=== PATIENT | male | born 1965 | race Caucasian/White ===

== ENCOUNTER 2020-04-20 06:06 | Emergency (ER) | payer MEDICAID, OTHER | END 2020-04-20 06:21 | disposition left against medical advice (07) | LOC: ER 06:06 | DX: R10.9 Unspecified abdominal pain (principal); Z53.21 Procedure and treatment not carried out due to patient leaving prior to being seen by health care provider ==

== ENCOUNTER 2023-11-14 08:03 | Emergency (ER) | payer MEDICAID ==
[~2023-11-14] VITALS: Ht 182.9 cm; Wt 80.8 kg
[2023-11-14 09:35] LABS: Urine Bacteria None Seen /hpf (None Seen); Urine WBC None Seen /hpf (0 - 3)
[2023-11-14 09:49] LABS: Urine Blood Negative /uL (Negative); Urine Clarity Clear (Clear); Urine Color Yellow (Yellow); Urine Mucus FEW (None Seen); Urine Protein, UAD TRACE (Negative); Urine Specific Gravity 1.025 (1.001-1.035); Urine Urobilinogen Normal (Negative); Urine pH 5.5 (5.0-9.0)
[2023-11-14 09:56] LABS: Basophils # (auto) 0 10 ^3/uL (0-0.2); Basophils % (auto) 0.5 % (0.0-2.0); Eosinophils # (auto) 0.2 10 ^3/uL (0-0.8); Eosinophils % (auto) 2.1 % (0.0-7.0); Hematocrit 44.3 % (41.0-53.0); Hemoglobin 15.4 g/dL (13.5-17.5); Lymphocytes # (auto) 2.1 10 ^3/uL (0.4-5.4); Lymphocytes % (auto) 27.5 % (10.0-50.0); Mean Corpuscular Hemoglobin 32.3 pg (28.0-32.0); Mean Corpuscular Hgb Conc. 34.7 g/dL (32.0-36.0); Mean Corpuscular Volume 93.1 fL (80.0-100.0); Monocytes # (auto) 0.5 10 ^3/uL (0-1.3); Monocytes % (auto) 7.2 % (0.0-12.0); Neutrophils # (auto) 4.8 10 ^3/uL (1.6-8.6); Neutrophils % (auto) 62.7 % (37.0-80.0); Nucleated Red Blood Cells % 0.1 %; Red Blood Cells 4.75 10^6/uL (4.5-5.90); Red Cell Distribution Width 13.8 % (11.8-14.3); White Blood Cell 7.6 10^3/uL (4.4-10.8)
[2023-11-14 10:11] VITALS: BP 134/72; PULSE 54; RESP 18; TEMP 98.2; O2SAT 97
[2023-11-14] MEDS: KETOROLAC TROMETH 60MG/2ML VIAL IM ONE (10:25)
[2023-11-14 10:26] LABS: Alanine Aminotransferase 24 U/L (7-40); Albumin 4.4 g/dL (3.2-4.8); Alkaline Phosphatase 86 U/L (46-116); Anion Gap 4 (5-15); Aspartate Aminotransferase 20 U/L (13-40); BUN/Creatinine Ratio 13.6 (10.0-20.0); Bilirubin, Total 0.7 mg/dL (0.2-1.0); Blood Urea Nitrogen 11 mg/dL (9-23); Calcium 9.9 mg/dL (8.5-10.1); Carbon Dioxide 26 mmol/L (20-30); Chloride 107 mmol/L (98-107); Glucose 91 mg/dL (74-106); Sodium 137 mmol/L (136-145); Total Protein 7.1 g/dL (5.7-8.2)
[2023-11-14] MEDS ORDERED: TRAM-626 PO (10:38)
[2023-11-14 10:39] LABS: Lipase 36 U/L (12-53)
== END 2023-11-14 10:47 | disposition home or self-care (01) ==
LOC: ER 08:03
DX: K80.20 Calculus of gallbladder without cholecystitis without obstruction (principal); F17.210 Nicotine dependence, cigarettes, uncomplicated; F12.10 Cannabis abuse, uncomplicated
CPT/HCPCS: 36415; 76705; 80053; 81001; 83690; 85025; 96372; 99285; J1885

== ENCOUNTER 2024-02-23 11:38 | Inpatient (IN) | payer MEDICAID ==
[~2024-02-23] VITALS: Ht 180.3 cm; Wt 79.4 kg
[~2024-02-23 11:38] MED LIST: TRAM-626 PO
[2024-02-23 12:12] LABS: Basophils # (auto) 0.1 10 ^3/uL (0-0.2); Basophils % (auto) 0.8 % (0.0-2.0); Eosinophils # (auto) 0.3 10 ^3/uL (0-0.8); Eosinophils % (auto) 3.4 % (0.0-7.0); Hematocrit 46.9 % (41.0-53.0); Lymphocytes # (auto) 2.5 10 ^3/uL (0.4-5.4); Lymphocytes % (auto) 31.8 % (10.0-50.0); Mean Corpuscular Hemoglobin 32.6 pg (28.0-32.0); Mean Corpuscular Hgb Conc. 34.1 g/dL (32.0-36.0); Mean Corpuscular Volume 95.5 fL (80.0-100.0); Monocytes # (auto) 0.3 10 ^3/uL (0-1.3); Monocytes % (auto) 4.4 % (0.0-12.0); Neutrophils # (auto) 4.6 10 ^3/uL (1.6-8.6); Neutrophils % (auto) 59.6 % (37.0-80.0); Nucleated Red Blood Cells % 0.1 %; Platelet Count (auto) 206 10^3/uL (140-450); Red Blood Cells 4.92 10^6/uL (4.5-5.90); Red Cell Distribution Width 13.2 % (11.8-14.3); White Blood Cell 7.8 10^3/uL (4.4-10.8)
[2024-02-23 12:31] LABS: Alanine Aminotransferase 18 U/L (7-40); Albumin 4.4 g/dL (3.2-4.8); Alkaline Phosphatase 78 U/L (46-116); Anion Gap 5 (5-15); Aspartate Aminotransferase 15 U/L (13-40); BUN/Creatinine Ratio 11.1 (10.0-20.0); Bilirubin, Total 0.4 mg/dL (0.2-1.0); Blood Urea Nitrogen 11 mg/dL (9-23); Calcium 9.8 mg/dL (8.7-10.4); Carbon Dioxide 26 mmol/L (20-31); Chloride 105 mmol/L (98-107); Glucose 118 mg/dL (74-106); Potassium 4.4 mmol/L (3.5-5.1); Sodium 136 mmol/L (136-145)
[2024-02-23 12:32] LABS: Total Protein 7.1 g/dL (5.7-8.2)
[2024-02-23 12:35] LABS: INR 1.02 (0.9-1.15); Partial Thromboplastin Time 28.8 SEC (24.5-34.5); Prothrombin Time 10.8 sec (9.3-11.8)
[2024-02-23 15:25] VITALS: BP 174/80; PULSE 38; RESP 16
[2024-02-23 15:54] LABS: Magnesium 2.2 mg/dL (1.6-2.6)
[2024-02-23] MEDS ORDERED: MORPHINE SULFATE INJ 2 MG/ml SYRG IV PRN (16:30)
[2024-02-23] MEDS ORDERED: NITROGLYCERIN 0.4 MG SL TAB SL PRN (16:30)
[2024-02-23] MEDS ORDERED: TRAZ-227 PO (17:03)
[2024-02-23] MEDS ORDERED: hydrALAZINE HCL 20 MG/ML VL IV PRN (17:15)
[2024-02-23 18:00] VITALS: PULSE 44; RESP 16; O2SAT 95
[2024-02-23 20:00] VITALS: PULSE 51; RESP 16; O2SAT 96
[2024-02-23 20:46] VITALS: BP 135/72; PULSE 49; RESP 18; TEMP 97.4; O2SAT 97
[2024-02-23] MEDS ORDERED: TRAM50TA2 PO (20:52)
[2024-02-23] MEDS: ATORVASTATIN 20 MG TAB PO SCH (22:42)
[2024-02-23] MEDS: traMADol HCL 50 MG TAB PO SCH (22:43)
[2024-02-24] VITALS (13 sets, daily range): BP systolic 102–159; BP diastolic 60–79; PULSE 40–67; RESP 12–19; TEMP 97.4–98.1; O2SAT 95–99
[2024-02-24 02:19] LABS: Urine Bacteria None Seen /hpf (None Seen)
[2024-02-24 02:30] LABS: Urine Blood Negative /uL (Negative); Urine Clarity Clear (Clear); Urine Color Light-Yellow (Yellow); Urine Mucus FEW (None Seen); Urine Protein, UAD Negative (Negative); Urine Specific Gravity 1.019 (1.001-1.035); Urine Urobilinogen Normal (Negative); Urine WBC 1 /hpf (0 - 3)
[2024-02-24 02:43] LABS: Amphetamine Screen, Urine Neg (NEGATIVE); Benzodiazephine Screen, Urine Neg (NEGATIVE)
[2024-02-24 02:44] LABS: Barbiturate Scree,Urine Neg (NEGATIVE); Cannabinoid Screen, Urine Pos (NEGATIVE); Cocaine Screen, Urine Neg (NEGATIVE); Opiate Scree,Urine Neg (NEGATIVE); Phencyclidine Screen, Urine Neg (NEGATIVE)
[2024-02-24 07:00] LABS: Chloride 109 mmol/L (98-107); Potassium 4.2 mmol/L (3.5-5.1); Sodium 138 mmol/L (136-145)
[2024-02-24 07:01] LABS: Anion Gap 5 (5-15); Calcium 9.5 mg/dL (8.7-10.4); Carbon Dioxide 24 mmol/L (20-31)
[2024-02-24 07:06] LABS: BUN/Creatinine Ratio 14.1 (10.0-20.0); Blood Urea Nitrogen 14 mg/dL (9-23); Glucose 91 mg/dL (74-106)
[2024-02-24 07:11] LABS: Basophils # (auto) 0 10 ^3/uL (0-0.2); Basophils % (auto) 0.4 % (0.0-2.0); Eosinophils # (auto) 0.4 10 ^3/uL (0-0.8); Eosinophils % (auto) 4.3 % (0.0-7.0); Hematocrit 46.1 % (41.0-53.0); Hemoglobin 16.2 g/dL (13.5-17.5); Lymphocytes # (auto) 2.4 10 ^3/uL (0.4-5.4); Lymphocytes % (auto) 27.8 % (10.0-50.0); Mean Corpuscular Hemoglobin 32.8 pg (28.0-32.0); Mean Corpuscular Hgb Conc. 35.1 g/dL (32.0-36.0); Mean Corpuscular Volume 93.5 fL (80.0-100.0); Monocytes # (auto) 0.5 10 ^3/uL (0-1.3); Neutrophils # (auto) 5.3 10 ^3/uL (1.6-8.6); Neutrophils % (auto) 61.5 % (37.0-80.0); Nucleated Red Blood Cells % 0.1 %; Platelet Count (auto) 197 10^3/uL (140-450); Red Blood Cells 4.94 10^6/uL (4.5-5.90); Red Cell Distribution Width 13.3 % (11.8-14.3); White Blood Cell 8.6 10^3/uL (4.4-10.8)
[2024-02-24] MEDS: MIDAZOLAM HCL 2MG/2ML 2ml VIAL (1mg/ml) ONE (09:44)
[2024-02-24] MEDS: VERAPAMIL 2.5MG/ML INJ 2ML VIAL IV ONE (09:44)
[2024-02-24] MEDS: fentaNYL CITRATE 100 MCG/2 ML VL ONE (09:44)
[2024-02-24] MEDS: HEPARIN SODIUM (PORCINE) 5000 UNITS/ML 1ML VIAL ONE (09:45)
[2024-02-24] MEDS: LIDOCAINE 2%HCL (LOCAL ANESTH.) INJ 20ML MDV ONE (09:45)
[2024-02-24] MEDS: IOHEXOL 350 MG/ML 100ML IJ ONE (10:17)
[2024-02-24] MEDS: ATORVASTATIN 20 MG TAB PO ONE (13:01)
[2024-02-24] MEDS: ASPirin 81 mg TAB PO ONE (13:01)
[2024-02-24] MEDS: ISOSORBIDE MONONITRATE ER 60 MG TAB PO ONE (13:01)
[2024-02-24] MEDS: traZODone HCL 50 MG TAB PO PRN (20:18)
[2024-02-24] MEDS: ATORVASTATIN 20 MG TAB PO SCH (21:25)
[2024-02-25] VITALS (10 sets, daily range): BP systolic 106–163; BP diastolic 57–90; PULSE 44–78; RESP 18–24; TEMP 97.8–98.2; O2SAT 94–99
[2024-02-25 07:06] LABS: Anion Gap 7 (5-15); Carbon Dioxide 24 mmol/L (20-31); Chloride 106 mmol/L (98-107); Sodium 137 mmol/L (136-145)
[2024-02-25 07:07] LABS: Calcium 9.3 mg/dL (8.7-10.4)
[2024-02-25 07:12] LABS: BUN/Creatinine Ratio 15.7 (10.0-20.0); Blood Urea Nitrogen 16 mg/dL (9-23); Glucose 87 mg/dL (74-106)
[2024-02-25] MEDS: ASPirin 81 mg TAB PO SCH (10:00)
[2024-02-25] MEDS: ISOSORBIDE MONONITRATE ER 60 MG TAB PO SCH (10:22)
[2024-02-26] VITALS (9 sets, daily range): BP systolic 113–149; BP diastolic 62–88; PULSE 43–83; RESP 15–20; TEMP 98.3–98.7; O2SAT 92–99
[2024-02-26 06:32] LABS: Anion Gap 6 (5-15); Carbon Dioxide 25 mmol/L (20-31); Chloride 105 mmol/L (98-107); Potassium 4.3 mmol/L (3.5-5.1); Sodium 136 mmol/L (136-145)
[2024-02-26 06:33] LABS: Calcium 10.1 mg/dL (8.7-10.4)
[2024-02-26 06:38] LABS: BUN/Creatinine Ratio 15.8 (10.0-20.0); Blood Urea Nitrogen 16 mg/dL (9-23); Glucose 95 mg/dL (74-106)
[2024-02-27] VITALS (12 sets, daily range): BP systolic 108–153; BP diastolic 72–113; PULSE 60–108; RESP 12–18; TEMP 97.6–98.3; O2SAT 93–96
[2024-02-27 03:04] LABS: Basophils # (auto) 0.1 10 ^3/uL (0-0.2); Eosinophils # (auto) 0.3 10 ^3/uL (0-0.8); Eosinophils % (auto) 2.7 % (0.0-7.0); Hematocrit 46.7 % (41.0-53.0); Hemoglobin 16.6 g/dL (13.5-17.5); Lymphocytes # (auto) 2.5 10 ^3/uL (0.4-5.4); Lymphocytes % (auto) 25.4 % (10.0-50.0); Mean Corpuscular Hemoglobin 32.8 pg (28.0-32.0); Mean Corpuscular Hgb Conc. 35.6 g/dL (32.0-36.0); Monocytes # (auto) 0.6 10 ^3/uL (0-1.3); Monocytes % (auto) 6.3 % (0.0-12.0); Neutrophils # (auto) 6.4 10 ^3/uL (1.6-8.6); Neutrophils % (auto) 64.6 % (37.0-80.0); Nucleated Red Blood Cells % 0.1 %; Platelet Count (auto) 198 10^3/uL (140-450); Red Blood Cells 5.08 10^6/uL (4.5-5.90); White Blood Cell 9.9 10^3/uL (4.4-10.8)
[2024-02-27 03:13] LABS: Chloride 104 mmol/L (98-107); Potassium 3.6 mmol/L (3.5-5.1); Sodium 135 mmol/L (136-145)
[2024-02-27 03:14] LABS: Anion Gap 6 (5-15); Carbon Dioxide 25 mmol/L (20-31)
[2024-02-27 03:15] LABS: Calcium 10.1 mg/dL (8.7-10.4)
[2024-02-27 03:19] LABS: Blood Urea Nitrogen 16 mg/dL (9-23); Glucose 100 mg/dL (74-106)
[2024-02-27] MEDS: ONDANSETRON HCL 4 MG/2 ML VIAL IV PRN (06:10)
[2024-02-27] MEDS ORDERED: ASPI-325 PO (13:19)
[2024-02-27] MEDS ORDERED: ATOR20TA50 PO (13:19)
[2024-02-27] MEDS ORDERED: ISO60SRT PO (13:19)
[2024-02-27] MEDS ORDERED: MIDAZOLAM HCL 2MG/2ML 2ml VIAL (1mg/ml) ONE (14:14)
[2024-02-27] MEDS ORDERED: LIDOCAINE 2%HCL (LOCAL ANESTH.) INJ 20ML MDV ONE (14:14)
[2024-02-27] MEDS ORDERED: VANCOMYCIN HCL 1000 MG VL ONE ×3 (14:14→14:48)
[2024-02-27] MEDS ORDERED: fentaNYL CITRATE 100 MCG/2 ML VL ONE ×2 (14:14→15:41)
[2024-02-27] MEDS ORDERED: VANCOMYCIN 1GM/200ML PREMIX 250 ML IV ONE (14:15)
[2024-02-27] MEDS ORDERED: KETOROLAC TROMETH 30 MG/ML 1ML VIAL IV ONE (14:30)
[2024-02-27] MEDS: VANCOMYCIN 1GM/200ML PREMIX 250 ML IV SCH (23:00)
[2024-02-28] VITALS (8 sets, daily range): BP systolic 108–139; BP diastolic 66–95; PULSE 61–99; RESP 17–18; TEMP 97.9–98.4; O2SAT 94–97
[2024-02-28 05:55] LABS: Basophils # (auto) 0 10 ^3/uL (0-0.2); Basophils % (auto) 0.3 % (0.0-2.0); Eosinophils # (auto) 0.1 10 ^3/uL (0-0.8); Eosinophils % (auto) 1.4 % (0.0-7.0); Hematocrit 43.9 % (41.0-53.0); Hemoglobin 15.4 g/dL (13.5-17.5); Lymphocytes # (auto) 1.6 10 ^3/uL (0.4-5.4); Lymphocytes % (auto) 16.1 % (10.0-50.0); Mean Corpuscular Hemoglobin 32.4 pg (28.0-32.0); Mean Corpuscular Hgb Conc. 35.1 g/dL (32.0-36.0); Mean Corpuscular Volume 92.4 fL (80.0-100.0); Monocytes # (auto) 0.7 10 ^3/uL (0-1.3); Monocytes % (auto) 7.1 % (0.0-12.0); Neutrophils # (auto) 7.6 10 ^3/uL (1.6-8.6); Neutrophils % (auto) 75.1 % (37.0-80.0); Platelet Count (auto) 179 10^3/uL (140-450); Red Blood Cells 4.75 10^6/uL (4.5-5.90); White Blood Cell 10.1 10^3/uL (4.4-10.8)
[2024-02-28 06:15] LABS: Chloride 103 mmol/L (98-107); Potassium 3.6 mmol/L (3.5-5.1); Sodium 134 mmol/L (136-145)
[2024-02-28 06:16] LABS: Anion Gap 8 (5-15); Calcium 9.5 mg/dL (8.7-10.4); Carbon Dioxide 23 mmol/L (20-31)
[2024-02-28 06:21] LABS: BUN/Creatinine Ratio 15.1 (10.0-20.0); Blood Urea Nitrogen 13 mg/dL (9-23); Glucose 104 mg/dL (74-106)
[2024-02-28] MEDS: METOPROLOL SUCCINATE XL 50 MG TAB PO ONE (11:05)
[2024-02-28] MEDS: CLOPIDOGREL BISULFATE 75 MG TAB PO ONE (11:06)
[2024-02-28] MEDS: APIXABAN 5 MG TAB PO SCH (11:07)
[2024-02-28] MEDS: AMIODARONE HCL 200 MG TAB PO ONE (11:07)
[2024-02-28] MEDS: DOXYCYCLINE 100 MG TAB/CAP PO ONE (15:08)
[2024-02-28] MEDS ORDERED: CLOP75TA70 PO (15:09)
[2024-02-28] MEDS ORDERED: DOX100T PO (15:09)
[2024-02-28] MEDS ORDERED: METO-6 PO (15:09)
[2024-02-28] MEDS ORDERED: APIX5TAB PO (15:09)
[2024-02-28] MEDS ORDERED: AMIO200T13 PO (15:09)
[2024-02-28] MEDS ORDERED: NAPR-746 PO (15:23)
[2024-02-28] MEDS ORDERED: DOXYCYCLINE 100 MG TAB/CAP PO SCH (22:00)
[2024-02-28] MEDS ORDERED: AMIODARONE HCL 200 MG TAB PO SCH (22:00)
[2024-02-29] MEDS ORDERED: METOPROLOL SUCCINATE XL 50 MG TAB PO SCH (10:00)
[2024-02-29] MEDS ORDERED: CLOPIDOGREL BISULFATE 75 MG TAB PO SCH (10:00)
[2024-02-29] MEDS ORDERED: VANCOMYCIN 1GM/200ML PREMIX 250 ML IV SCH (10:00)
== END 2024-02-28 17:03 | disposition home or self-care (01) | DRG 171 ==
LOC: ER 11:40 → TELE 16:28 → TELE-E-ADS 20:44
PROVIDERS: ADMIT Internal Medicine; ATTEND Emergency Medicine
PROC: B211YZZ Fluoroscopy of Multiple Coronary Arteries using Other Contrast (ICD-10-PCS; 2024-02-24)
PROC: 4A023N7 Measurement of Cardiac Sampling and Pressure, Left Heart, Percutaneous Approach (ICD-10-PCS; 2024-02-24)
PROC: 0JH606Z Insertion of Pacemaker, Dual Chamber into Chest Subcutaneous Tissue and Fascia, Open Approach (ICD-10-PCS; principal; 2024-02-27)
PROC: 02H63JZ Insertion of Pacemaker Lead into Right Atrium, Percutaneous Approach (ICD-10-PCS; 2024-02-27)
PROC: 02HK3JZ Insertion of Pacemaker Lead into Right Ventricle, Percutaneous Approach (ICD-10-PCS; 2024-02-27)
PROC: B517YZZ Fluoroscopy of Left Subclavian Vein using Other Contrast (ICD-10-PCS; 2024-02-27)
PROC: B51NYZZ Fluoroscopy of Left Upper Extremity Veins using Other Contrast (ICD-10-PCS; 2024-02-27)
DX: I44.1 Atrioventricular block, second degree (principal); E11.9 Type 2 diabetes mellitus without complications; E78.00 Pure hypercholesterolemia, unspecified; G47.00 Insomnia, unspecified; M54.9 Dorsalgia, unspecified; G89.29 Other chronic pain; M54.50 Low back pain, unspecified; F12.10 Cannabis abuse, uncomplicated; I48.0 Paroxysmal atrial fibrillation; I10 Essential (primary) hypertension; E66.9 Obesity, unspecified; F17.210 Nicotine dependence, cigarettes, uncomplicated; I25.119 Atherosclerotic heart disease of native coronary artery with unspecified angina pectoris; I25.2 Old myocardial infarction; Z71.6 Tobacco abuse counseling; Z79.899 Other long term (current) drug therapy; Z80.1 Family history of malignant neoplasm of trachea, bronchus and lung; Z68.24 Body mass index [BMI] 24.0-24.9, adult; Z79.02 Long term (current) use of antithrombotics/antiplatelets; Z79.01 Long term (current) use of anticoagulants; Z82.49 Family history of ischemic heart disease and other diseases of the circulatory system
CPT/HCPCS: 33208; 36415; 70450; 70551; 71045; 80048; 80053; 80061; 80307; 81001; 83036; 83735; 84443; 84484; 85025; 85610; 85730; 86850; 86900; 86901; 93005; 93017; 93306; 93458; 93886; 99152; 99291; G0378; J2250; J2405

== ENCOUNTER 2024-03-09 06:35 | Inpatient (IN) | payer MEDICAID ==
[2024-03-09] VITALS (16 sets, daily range): BP systolic 119–165; BP diastolic 76–102; PULSE 90–127; RESP 14–31; TEMP 97.8–98.1; O2SAT 93–98
[~2024-03-09] VITALS: Ht 180.3 cm; Wt 84.2 kg
[~2024-03-09 06:35] MED LIST changes: +AMIO200T13 PO; +APIX5TAB PO; +ASPI-325 PO; +ATOR20TA50 PO; +CLOP75TA70 PO; +DOX100T PO; +ISO60SRT PO; +METO-6 PO; +NAPR-746 PO; -TRAM-626 PO; +TRAZ-227 PO
[2024-03-09] MEDS: SODIUM CHLORIDE 0.9% 1,000 ML IV ONE ×2 (07:59→14:45)
[2024-03-09] MEDS: ONDANSETRON HCL 4 MG/2 ML VIAL IV ONE (07:59)
[2024-03-09] MEDS: FAMOTIDINE (10MG/ML) 2ML VL IV ONE (07:59)
[2024-03-09 08:32] LABS: Chloride 107 mmol/L (98-107); Potassium 4.2 mmol/L (3.5-5.1); Sodium 138 mmol/L (136-145)
[2024-03-09 08:33] LABS: Anion Gap 8 (5-15); Basophils # (auto) 0 10 ^3/uL (0-0.2); Basophils % (auto) 0.2 % (0.0-2.0); Carbon Dioxide 23 mmol/L (20-31); Eosinophils # (auto) 0.2 10 ^3/uL (0-0.8); Eosinophils % (auto) 1.4 % (0.0-7.0); Lymphocytes # (auto) 1.9 10 ^3/uL (0.4-5.4); Lymphocytes % (auto) 13.2 % (10.0-50.0); Mean Corpuscular Hgb Conc. 34.3 g/dL (32.0-36.0); Mean Corpuscular Volume 93.4 fL (80.0-100.0); Monocytes # (auto) 0.9 10 ^3/uL (0-1.3); Monocytes % (auto) 6.4 % (0.0-12.0); Neutrophils # (auto) 11.1 10 ^3/uL (1.6-8.6); Neutrophils % (auto) 78.8 % (37.0-80.0); Platelet Count (auto) 290 10^3/uL (140-450); Red Blood Cells 4.39 10^6/uL (4.5-5.90); Red Cell Distribution Width 13.1 % (11.8-14.3); White Blood Cell 14.1 10^3/uL (4.4-10.8)
[2024-03-09 08:38] LABS: BUN/Creatinine Ratio 18.3 (10.0-20.0); Blood Urea Nitrogen 19 mg/dL (9-23); Glucose 139 mg/dL (74-106)
[2024-03-09] MEDS: MORPHINE SULFATE 4 MG/ML SYR/VIAL IV ONE (09:34)
[2024-03-09] MEDS ORDERED: NITROGLYCERIN 0.4 MG SL TAB SL PRN (09:45)
[2024-03-09] MEDS ORDERED: ACETAMINOPHEN 325 MG TAB PO PRN (09:45)
[2024-03-09] MEDS ORDERED: MORPHINE SULFATE INJ 2 MG/ml SYRG IV PRN (09:45)
[2024-03-09] MEDS: CLOPIDOGREL BISULFATE 75 MG TAB PO SCH (10:31)
[2024-03-09] MEDS: METOPROLOL SUCCINATE XL 50 MG TAB PO SCH (10:31)
[2024-03-09] MEDS: ISOSORBIDE MONONITRATE ER 60 MG TAB PO SCH (10:32)
[2024-03-09] MEDS: AMIODARONE HCL 200 MG TAB PO SCH (10:32)
[2024-03-09] MEDS: ASPirin-EC 81 mg tab PO SCH (10:33)
[2024-03-09] MEDS: APIXABAN 5 MG TAB PO SCH (10:33)
[2024-03-09 11:41] LABS: Phosphorus 4.5 mg/dL (2.4-5.1)
[2024-03-09 11:46] LABS: INR 1.06 (0.9-1.15); Partial Thromboplastin Time 30.2 SEC (24.5-34.5); Prothrombin Time 11.2 sec (9.3-11.8)
[2024-03-09] MEDS: ONDANSETRON HCL 4 MG/2 ML VIAL IV PRN (12:45)
[2024-03-09 14:08] LABS: Lactic Acid w/Reflex 3.4 mmol/L (0.4-2.0)
[2024-03-09] MEDS: SODIUM CHLOR 0.9% PF (SALINE LOCK) 10ML VIAL/SYR IV SCH (14:16)
[2024-03-09] MEDS: MIDAZOLAM HCL 2MG/2ML 2ml VIAL (1mg/ml) ONE (16:05)
[2024-03-09] MEDS: fentaNYL CITRATE 100 MCG/2 ML VL ONE ×2 (16:05→16:40)
[2024-03-09] MEDS: LIDOCAINE 2%HCL (LOCAL ANESTH.) INJ 20ML MDV ONE ×2 (16:06→16:39)
[2024-03-09] MEDS: HYDROmorphone HCL 2 MG/ML VL/or syr ONE (17:10)
[2024-03-09] MEDS: VANCOMYCIN 1GM/200ML PREMIX 200 ML IV ONE (17:48)
[2024-03-09 19:36] LABS: Urine Bacteria None Seen /hpf (None Seen)
[2024-03-09 19:50] LABS: Urine Blood Negative /uL (Negative); Urine Clarity Clear (Clear); Urine Color Yellow (Yellow); Urine Hyaline Cast MOD /lpf (0 - 2); Urine Mucus MODERATE (None Seen); Urine Protein, UAD 1+ (Negative); Urine Specific Gravity 1.038 (1.001-1.035); Urine Urobilinogen 2 mg/dL (Negative); Urine WBC 3 /hpf (0 - 3); Urine pH 5.5 (5.0-9.0)
[2024-03-09 20:00] LABS: Amphetamine Screen, Urine Neg (NEGATIVE)
[2024-03-09 20:01] LABS: Barbiturate Scree,Urine Neg (NEGATIVE); Benzodiazephine Screen, Urine Pos (NEGATIVE); Cannabinoid Screen, Urine Pos (NEGATIVE); Cocaine Screen, Urine Neg (NEGATIVE); Opiate Scree,Urine Pos (NEGATIVE); Phencyclidine Screen, Urine Neg (NEGATIVE)
[2024-03-09 20:22] LABS: Lactic Acid w/Reflex 2.3 mmol/L (0.4-2.0)
[2024-03-09 20:55] LABS: Body Fluid Polymorphonuclear 85 % (0-25); Body Fluid Red Blood Cells 3378603 CUMM (0-2000)
[2024-03-09 20:56] LABS: Body Fluid White Blood Cells 34354 CUMM (0-200)
[2024-03-09] MEDS: ATORVASTATIN 20 MG TAB PO SCH (20:58)
[2024-03-09] MEDS: HYDROmorphone HCL 2 MG/ML VL/or syr IV PRN (21:06)
[2024-03-10] VITALS (31 sets, daily range): BP systolic 71–144; BP diastolic 41–113; PULSE 92–131; RESP 12–27; TEMP 97.7–98.6; O2SAT 90–99
[2024-03-10] MEDS: SENNA 8.6 MG TAB PO ONE (02:10)
[2024-03-10 05:06] LABS: Basophils # (auto) 0 10 ^3/uL (0-0.2); Basophils % (auto) 0.1 % (0.0-2.0); Eosinophils # (auto) 0 10 ^3/uL (0-0.8); Hematocrit 38.3 % (41.0-53.0); Hemoglobin 13.2 g/dL (13.5-17.5); Lymphocytes # (auto) 1.9 10 ^3/uL (0.4-5.4); Lymphocytes % (auto) 10.8 % (10.0-50.0); Mean Corpuscular Hemoglobin 32.2 pg (28.0-32.0); Mean Corpuscular Hgb Conc. 34.4 g/dL (32.0-36.0); Mean Corpuscular Volume 93.6 fL (80.0-100.0); Monocytes # (auto) 1.9 10 ^3/uL (0-1.3); Monocytes % (auto) 10.7 % (0.0-12.0); Neutrophils # (auto) 14.1 10 ^3/uL (1.6-8.6); Neutrophils % (auto) 78.4 % (37.0-80.0); Platelet Count (auto) 323 10^3/uL (140-450); Red Blood Cells 4.09 10^6/uL (4.5-5.90); Red Cell Distribution Width 13.4 % (11.8-14.3)
[2024-03-10 05:22] LABS: Alanine Aminotransferase 27 U/L (7-40); Alkaline Phosphatase 77 U/L (46-116); Anion Gap 7 (5-15); BUN/Creatinine Ratio 19.4 (10.0-20.0); Blood Urea Nitrogen 20 mg/dL (9-23); Calcium 9.5 mg/dL (8.7-10.4); Carbon Dioxide 21 mmol/L (20-31); Chloride 106 mmol/L (98-107); Glucose 144 mg/dL (74-106); Potassium 4.3 mmol/L (3.5-5.1); Sodium 134 mmol/L (136-145)
[2024-03-10 05:23] LABS: Albumin 4.1 g/dL (3.2-4.8); Aspartate Aminotransferase 20 U/L (13-40)
[2024-03-10 05:24] LABS: Bilirubin, Total 0.8 mg/dL (0.2-1.0); Total Protein 6.7 g/dL (5.7-8.2)
[2024-03-10] MEDS ORDERED: VANCOMYCIN PER PHARMACY 0 MG IV SCH (07:45)
[2024-03-10] MEDS: VANCOMYCIN 1GM/200ML PREMIX 200 ML IV SCH ×2 (10:28→21:15)
[2024-03-10] MEDS: MEROPENEM 1GM IVPB 50 ML IV ONE (13:24)
[2024-03-10] MEDS: MEROPENEM 1GM IVPB 50 ML IV SCH (15:00)
[2024-03-10] MEDS: AMIODARONE 450mg/250ml AE 250 ML IV SCH (18:47)
[2024-03-10] MEDS: COLCHICINE 0.6 MG CAP PO ONE (19:11)
[2024-03-10] MEDS: IBUPROFEN 600 MG TAB PO ONE (21:18)
[2024-03-10] MEDS: COLCHICINE 0.6 MG CAP PO SCH (21:19)
[2024-03-10] MEDS: IBUPROFEN 600 MG TAB PO SCH (22:00)
[2024-03-10] MEDS: FAMOTIDINE 20 MG TAB PO SCH (22:11)
[2024-03-10 23:53] LABS: COVID19 ANTIGEN SOFIA FIA NEGATIVE (NEGATIVE)
[2024-03-11] VITALS (91 sets, daily range): BP systolic 83–161; BP diastolic 45–105; PULSE 60–102; RESP 9–27; TEMP 98.1–99; O2SAT 86–98
[2024-03-11 04:56] LABS: Basophils # (auto) 0.1 10 ^3/uL (0-0.2); Basophils % (auto) 0.6 % (0.0-2.0); Eosinophils # (auto) 0 10 ^3/uL (0-0.8); Eosinophils % (auto) 0.2 % (0.0-7.0); Hematocrit 34.3 % (41.0-53.0); Hemoglobin 11.6 g/dL (13.5-17.5); Lymphocytes # (auto) 3.5 10 ^3/uL (0.4-5.4); Lymphocytes % (auto) 20.6 % (10.0-50.0); Mean Corpuscular Hemoglobin 31.9 pg (28.0-32.0); Mean Corpuscular Hgb Conc. 33.8 g/dL (32.0-36.0); Mean Corpuscular Volume 94.3 fL (80.0-100.0); Monocytes # (auto) 1.8 10 ^3/uL (0-1.3); Monocytes % (auto) 10.5 % (0.0-12.0); Neutrophils # (auto) 11.6 10 ^3/uL (1.6-8.6); Neutrophils % (auto) 68.1 % (37.0-80.0); Nucleated Red Blood Cells % 0.1 %; Platelet Count (auto) 258 10^3/uL (140-450); Red Blood Cells 3.63 10^6/uL (4.5-5.90); Red Cell Distribution Width 13.5 % (11.8-14.3)
[2024-03-11 05:04] LABS: Alanine Aminotransferase 28 U/L (7-40); Albumin 3.7 g/dL (3.2-4.8); Alkaline Phosphatase 73 U/L (46-116); Anion Gap 7 (5-15); Aspartate Aminotransferase 23 U/L (13-40); BUN/Creatinine Ratio 18.9 (10.0-20.0); Bilirubin, Total 0.7 mg/dL (0.2-1.0); Blood Urea Nitrogen 17 mg/dL (9-23); Calcium 9.3 mg/dL (8.7-10.4); Carbon Dioxide 22 mmol/L (20-31); Chloride 105 mmol/L (98-107); Glucose 113 mg/dL (74-106); Potassium 3.8 mmol/L (3.5-5.1); Sodium 134 mmol/L (136-145); Total Protein 6.3 g/dL (5.7-8.2)
[2024-03-11] MEDS: IOHEXOL 350 MG/ML 100ML IJ ONE (08:13)
[2024-03-11] MEDS: HYDROcodone-ACET 5/325MG TAB PO PRN (10:53)
[2024-03-11 12:07] LABS: Albumin, Body Fluid 3.4 g/dL (Not Estab.); Creatinine Body Fluid 1.1 mg/dL (Not Estab.); Protein, Body Fluid 6.1 g/dL (.)
[2024-03-11 14:38] LABS: Erythrocyte Sedimentation Rate 57 mm/hr (0-20)
[2024-03-12] VITALS (91 sets, daily range): BP systolic 83–154; BP diastolic 46–94; PULSE 54–89; RESP 10–28; TEMP 97.9–98.9; O2SAT 85–98
[2024-03-12 05:01] LABS: Basophils # (auto) 0 10 ^3/uL (0-0.2); Basophils % (auto) 0.4 % (0.0-2.0); Eosinophils # (auto) 0.1 10 ^3/uL (0-0.8); Eosinophils % (auto) 1.3 % (0.0-7.0); Hematocrit 31.4 % (41.0-53.0); Hemoglobin 11.2 g/dL (13.5-17.5); Lymphocytes # (auto) 1.9 10 ^3/uL (0.4-5.4); Lymphocytes % (auto) 17.6 % (10.0-50.0); Mean Corpuscular Hemoglobin 32.9 pg (28.0-32.0); Mean Corpuscular Hgb Conc. 35.6 g/dL (32.0-36.0); Mean Corpuscular Volume 92.4 fL (80.0-100.0); Monocytes % (auto) 8.8 % (0.0-12.0); Neutrophils # (auto) 7.9 10 ^3/uL (1.6-8.6); Neutrophils % (auto) 71.9 % (37.0-80.0); Platelet Count (auto) 224 10^3/uL (140-450); Red Cell Distribution Width 12.8 % (11.8-14.3); White Blood Cell 10.9 10^3/uL (4.4-10.8)
[2024-03-12 05:15] LABS: INR 1.17 (0.9-1.15); Partial Thromboplastin Time 31.9 SEC (24.5-34.5); Prothrombin Time 12.3 sec (9.3-11.8)
[2024-03-12 05:20] LABS: Alanine Aminotransferase 31 U/L (7-40); Albumin 3.3 g/dL (3.2-4.8); Alkaline Phosphatase 68 U/L (46-116); Anion Gap 6 (5-15); Aspartate Aminotransferase 24 U/L (13-40); BUN/Creatinine Ratio 21.6 (10.0-20.0); Bilirubin, Total 0.6 mg/dL (0.2-1.0); Blood Urea Nitrogen 16 mg/dL (9-23); Calcium 8.5 mg/dL (8.7-10.4); Carbon Dioxide 24 mmol/L (20-31); Chloride 106 mmol/L (98-107); Glucose 83 mg/dL (74-106); Magnesium 2.2 mg/dL (1.6-2.6); Phosphorus 2.4 mg/dL (2.4-5.1); Sodium 136 mmol/L (136-145); Total Protein 5.5 g/dL (5.7-8.2)
[2024-03-12 05:27] LABS: CRP High Sensitivity 10.06 mg/dL (<1.0)
[2024-03-12] MEDS: POTASSIUM CHL 20MEQ/100ML 100 ML IV SCH (09:54)
[2024-03-12] MEDS: PANTOPRAZOLE 40 MG/10 ML VIAL INJ IV SCH (10:00)
[2024-03-12] MEDS: PANTOPRAZOLE 40 MG/10 ML VIAL INJ IV ONE (10:06)
[2024-03-12 17:06] LABS: Anti-Centromere B Antibody <0.2 AI (0.0-0.9); Anti-Jo-1 Antibody <0.2 AI (0.0-0.9); Anti-dsDNA Antibody 1 IU/mL (0-9); Antichromatin Antibody <0.2 AI (0.0-0.9); Antiscleroderma-70 Antibody <0.2 AI (0.0-0.9); RNP Antibody <0.2 AI (0.0-0.9); Sjogren's Anti-SS-A Antibody <0.2 AI (0.0-0.9); Sjogren's Anti-SS-B Antibody <0.2 AI (0.0-0.9); Smith Antibody <0.2 AI (0.0-0.9)
[2024-03-12] MEDS: traZODone HCL 50 MG TAB PO SCH (21:51)
[2024-03-13] VITALS (83 sets, daily range): BP systolic 75–152; BP diastolic 28–103; PULSE 60–92; RESP 10–27; TEMP 97.8–98.7; O2SAT 87–98
[2024-03-13 06:11] LABS: Basophils # (auto) 0.1 10 ^3/uL (0-0.2); Basophils % (auto) 0.9 % (0.0-2.0); Eosinophils # (auto) 0.3 10 ^3/uL (0-0.8); Eosinophils % (auto) 2.6 % (0.0-7.0); Hematocrit 34.7 % (41.0-53.0); Hemoglobin 12.5 g/dL (13.5-17.5); Lymphocytes # (auto) 2.3 10 ^3/uL (0.4-5.4); Lymphocytes % (auto) 23.7 % (10.0-50.0); Mean Corpuscular Hemoglobin 33.3 pg (28.0-32.0); Mean Corpuscular Hgb Conc. 35.9 g/dL (32.0-36.0); Mean Corpuscular Volume 92.6 fL (80.0-100.0); Monocytes # (auto) 0.8 10 ^3/uL (0-1.3); Monocytes % (auto) 8.7 % (0.0-12.0); Neutrophils # (auto) 6.2 10 ^3/uL (1.6-8.6); Neutrophils % (auto) 64.1 % (37.0-80.0); Nucleated Red Blood Cells % 0.1 %; Platelet Count (auto) 286 10^3/uL (140-450); Red Blood Cells 3.75 10^6/uL (4.5-5.90); Red Cell Distribution Width 12.9 % (11.8-14.3); White Blood Cell 9.7 10^3/uL (4.4-10.8)
[2024-03-13 06:25] LABS: Alanine Aminotransferase 35 U/L (7-40); Albumin 3.5 g/dL (3.2-4.8); Alkaline Phosphatase 69 U/L (46-116); Anion Gap 6 (5-15); Aspartate Aminotransferase 25 U/L (13-40); BUN/Creatinine Ratio 13.6 (10.0-20.0); Bilirubin, Total 0.6 mg/dL (0.2-1.0); Blood Urea Nitrogen 11 mg/dL (9-23); Calcium 8.8 mg/dL (8.7-10.4); Carbon Dioxide 24 mmol/L (20-31); Chloride 111 mmol/L (98-107); Glucose 85 mg/dL (74-106); Magnesium 2.2 mg/dL (1.6-2.6); Phosphorus 2.3 mg/dL (2.4-5.1); Potassium 3.7 mmol/L (3.5-5.1); Sodium 141 mmol/L (136-145)
[2024-03-13 06:26] LABS: Total Protein 5.7 g/dL (5.7-8.2)
[2024-03-13] MEDS: clonazePAM 0.5 MG TAB PO PRN (11:56)
[2024-03-13] MEDS: AMIODARONE HCL 200 MG TAB PO ONE (13:09)
[2024-03-13] MEDS: AMIODARONE HCL 200 MG TAB PO SCH (20:45)
[2024-03-14] VITALS (22 sets, daily range): BP systolic 72–164; BP diastolic 32–85; PULSE 59–96; RESP 14–27; TEMP 97.7–98.9; O2SAT 81–96
[2024-03-14 09:16] LABS: Basophils # (auto) 0 10 ^3/uL (0-0.2); Basophils % (auto) 0.5 % (0.0-2.0); Eosinophils # (auto) 0.3 10 ^3/uL (0-0.8); Eosinophils % (auto) 3.1 % (0.0-7.0); Hematocrit 37.6 % (41.0-53.0); Hemoglobin 12.8 g/dL (13.5-17.5); Mean Corpuscular Hemoglobin 31.5 pg (28.0-32.0); Mean Corpuscular Volume 92.8 fL (80.0-100.0); Monocytes # (auto) 0.6 10 ^3/uL (0-1.3); Monocytes % (auto) 6.2 % (0.0-12.0); Neutrophils # (auto) 6.5 10 ^3/uL (1.6-8.6); Neutrophils % (auto) 69.2 % (37.0-80.0); Platelet Count (auto) 322 10^3/uL (140-450); Red Blood Cells 4.05 10^6/uL (4.5-5.90); Red Cell Distribution Width 13.2 % (11.8-14.3); White Blood Cell 9.4 10^3/uL (4.4-10.8)
[2024-03-14 09:24] LABS: Alanine Aminotransferase 29 U/L (7-40); Albumin 3.4 g/dL (3.2-4.8); Alkaline Phosphatase 75 U/L (46-116); Anion Gap 7 (5-15); Aspartate Aminotransferase 20 U/L (13-40); BUN/Creatinine Ratio 13.3 (10.0-20.0); Bilirubin, Total 0.5 mg/dL (0.2-1.0); Blood Urea Nitrogen 10 mg/dL (9-23); Calcium 8.7 mg/dL (8.7-10.4); Carbon Dioxide 23 mmol/L (20-31); Chloride 110 mmol/L (98-107); Glucose 97 mg/dL (74-106); Potassium 3.2 mmol/L (3.5-5.1); Sodium 140 mmol/L (136-145); Total Protein 5.8 g/dL (5.7-8.2)
[2024-03-14 09:32] LABS: CRP High Sensitivity 2.53 mg/dL (<1.0)
[2024-03-14] MEDS ORDERED: HYDROmorphone HCL 2 MG/ML VL/or syr IV PRN (09:45)
[2024-03-14] MEDS: POTASSIUM EFFERVESENT TAB 25 MEQ PO ONE (10:07)
[2024-03-14] MEDS: HYDROmorphone HCL 2 MG/ML VL/or syr IV PRN (10:10)
[2024-03-15] VITALS (24 sets, daily range): BP systolic 93–145; BP diastolic 37–85; PULSE 72–109; RESP 13–25; TEMP 98.1–98.4; O2SAT 92–98
[2024-03-15 05:21] LABS: Chloride 110 mmol/L (98-107); Potassium 3.5 mmol/L (3.5-5.1); Sodium 141 mmol/L (136-145)
[2024-03-15 05:22] LABS: Anion Gap 6 (5-15); Basophils # (auto) 0.1 10 ^3/uL (0-0.2); Basophils % (auto) 0.7 % (0.0-2.0); Calcium 8.5 mg/dL (8.7-10.4); Carbon Dioxide 25 mmol/L (20-31); Eosinophils # (auto) 0.3 10 ^3/uL (0-0.8); Eosinophils % (auto) 3.2 % (0.0-7.0); Hematocrit 36.3 % (41.0-53.0); Hemoglobin 12.6 g/dL (13.5-17.5); Lymphocytes # (auto) 2.7 10 ^3/uL (0.4-5.4); Lymphocytes % (auto) 25.6 % (10.0-50.0); Mean Corpuscular Hemoglobin 32.1 pg (28.0-32.0); Mean Corpuscular Hgb Conc. 34.8 g/dL (32.0-36.0); Mean Corpuscular Volume 92.2 fL (80.0-100.0); Monocytes # (auto) 0.9 10 ^3/uL (0-1.3); Monocytes % (auto) 8.3 % (0.0-12.0); Neutrophils # (auto) 6.5 10 ^3/uL (1.6-8.6); Neutrophils % (auto) 62.2 % (37.0-80.0); Platelet Count (auto) 322 10^3/uL (140-450); Red Blood Cells 3.94 10^6/uL (4.5-5.90); Red Cell Distribution Width 13.2 % (11.8-14.3); White Blood Cell 10.5 10^3/uL (4.4-10.8)
[2024-03-15 05:27] LABS: BUN/Creatinine Ratio 10.5 (10.0-20.0); Blood Urea Nitrogen 9 mg/dL (9-23); Glucose 101 mg/dL (74-106)
[2024-03-15 05:31] LABS: INR 1.08 (0.9-1.15); Partial Thromboplastin Time 27.3 SEC (24.5-34.5); Prothrombin Time 11.4 sec (9.3-11.8)
[2024-03-15] MEDS: POTASSIUM EFFERVESENT TAB 25 MEQ PO ONE (09:44)
[2024-03-15] MEDS: DOXYCYCLINE 100 MG TAB/CAP PO ONE (10:45)
[2024-03-15] MEDS: ASPirin 81 mg TAB PO ONE (11:45)
[2024-03-15] MEDS: PIPERACILLIN-TAZOB 3.375GM 100 ML IV SCH (12:45)
[2024-03-15] MEDS: ALPRAZolam 0.25 MG TAB PO ONE (14:33)
[2024-03-15] MEDS: ALPRAZolam 0.25 MG TAB PO SCH (22:23)
[2024-03-15] MEDS: DOXYCYCLINE 100 MG TAB/CAP PO SCH (22:23)
[2024-03-16] VITALS (26 sets, daily range): BP systolic 89–155; BP diastolic 45–69; PULSE 61–83; RESP 12–28; TEMP 97.7–98.5; O2SAT 83–98
[2024-03-16 05:10] LABS: Basophils # (auto) 0.1 10 ^3/uL (0-0.2); Basophils % (auto) 0.7 % (0.0-2.0); Eosinophils # (auto) 0.3 10 ^3/uL (0-0.8); Eosinophils % (auto) 2.8 % (0.0-7.0); Hematocrit 33.1 % (41.0-53.0); Hemoglobin 11.5 g/dL (13.5-17.5); Lymphocytes # (auto) 3.2 10 ^3/uL (0.4-5.4); Lymphocytes % (auto) 31.3 % (10.0-50.0); Mean Corpuscular Hemoglobin 32.1 pg (28.0-32.0); Mean Corpuscular Hgb Conc. 34.7 g/dL (32.0-36.0); Mean Corpuscular Volume 92.4 fL (80.0-100.0); Monocytes # (auto) 0.8 10 ^3/uL (0-1.3); Monocytes % (auto) 8.2 % (0.0-12.0); Neutrophils # (auto) 5.7 10 ^3/uL (1.6-8.6); Nucleated Red Blood Cells % 0.1 %; Platelet Count (auto) 288 10^3/uL (140-450); Red Blood Cells 3.59 10^6/uL (4.5-5.90); White Blood Cell 10.1 10^3/uL (4.4-10.8)
[2024-03-16 05:24] LABS: Alanine Aminotransferase 34 U/L (7-40); Albumin 3.1 g/dL (3.2-4.8); Alkaline Phosphatase 84 U/L (46-116); Anion Gap 6 (5-15); Aspartate Aminotransferase 25 U/L (13-40); BUN/Creatinine Ratio 9.1 (10.0-20.0); Blood Urea Nitrogen 8 mg/dL (9-23); Calcium 8.7 mg/dL (8.7-10.4); Carbon Dioxide 26 mmol/L (20-31); Chloride 109 mmol/L (98-107); Glucose 85 mg/dL (74-106); Potassium 3.6 mmol/L (3.5-5.1); Sodium 141 mmol/L (136-145)
[2024-03-16 05:25] LABS: Bilirubin, Total 0.6 mg/dL (0.2-1.0); Total Protein 5.2 g/dL (5.7-8.2)
[2024-03-16] MEDS: POTASSIUM EFFERVESENT TAB 25 MEQ PO ONE (09:13)
[2024-03-16] MEDS: PANTOPRAZOLE 40 MG TAB PO ONE (09:14)
[2024-03-16] MEDS: ASPirin 81 mg TAB PO SCH (10:32)
[2024-03-16] MEDS: ALPRAZolam 0.25 MG TAB PO SCH (10:37)
[2024-03-16] MEDS: PIPERACILLIN-TAZOB 3.375GM 100 ML IV SCH (13:26)
[2024-03-16] MEDS ORDERED: PANTOPRAZOLE 40 MG TAB PO SCH (17:00)
[2024-03-16] MEDS: PANTOPRAZOLE 40 MG TAB PO SCH (22:12)
[2024-03-17] VITALS (21 sets, daily range): BP systolic 101–155; BP diastolic 42–72; PULSE 59–77; RESP 13–24; TEMP 97.9–98.6; O2SAT 90–97
[2024-03-17 04:57] LABS: Basophils # (auto) 0.1 10 ^3/uL (0-0.2); Basophils % (auto) 1.1 % (0.0-2.0); Eosinophils # (auto) 0.3 10 ^3/uL (0-0.8); Eosinophils % (auto) 4.1 % (0.0-7.0); Hematocrit 36.2 % (41.0-53.0); Hemoglobin 12.2 g/dL (13.5-17.5); Lymphocytes # (auto) 2.1 10 ^3/uL (0.4-5.4); Lymphocytes % (auto) 25.8 % (10.0-50.0); Mean Corpuscular Hemoglobin 31.6 pg (28.0-32.0); Mean Corpuscular Hgb Conc. 33.7 g/dL (32.0-36.0); Mean Corpuscular Volume 93.9 fL (80.0-100.0); Monocytes # (auto) 0.6 10 ^3/uL (0-1.3); Monocytes % (auto) 7.5 % (0.0-12.0); Neutrophils # (auto) 5.1 10 ^3/uL (1.6-8.6); Neutrophils % (auto) 61.5 % (37.0-80.0); Platelet Count (auto) 307 10^3/uL (140-450); Red Blood Cells 3.85 10^6/uL (4.5-5.90); Red Cell Distribution Width 13.3 % (11.8-14.3); White Blood Cell 8.3 10^3/uL (4.4-10.8)
[2024-03-17 05:16] LABS: INR 1.09 (0.9-1.15); Partial Thromboplastin Time 28.5 SEC (24.5-34.5); Prothrombin Time 11.5 sec (9.3-11.8)
[2024-03-17 05:28] LABS: Anion Gap 7 (5-15); Carbon Dioxide 27 mmol/L (20-31); Chloride 106 mmol/L (98-107); Potassium 4.1 mmol/L (3.5-5.1); Sodium 140 mmol/L (136-145)
[2024-03-17 05:34] LABS: Glucose 83 mg/dL (74-106)
[2024-03-17 05:35] LABS: BUN/Creatinine Ratio 9.3 (10.0-20.0); Blood Urea Nitrogen 9 mg/dL (9-23); Magnesium 2.1 mg/dL (1.6-2.6)
[2024-03-17 05:37] LABS: Phosphorus 3.8 mg/dL (2.4-5.1)
[2024-03-17 07:51] LABS: CRP High Sensitivity 2.09 mg/dL (<1.0)
[2024-03-17] MEDS: HYDROcodone-ACET 10/325MG TAB PO PRN (12:01)
[2024-03-17] MEDS: HYDROmorphone HCL 2 MG/ML VL/or syr IV PRN (15:33)
[2024-03-17] MEDS ORDERED: COLC1CAP PO (16:01)
[2024-03-17] MEDS ORDERED: FAMO-12 PO (16:01)
[2024-03-17] MEDS ORDERED: NITR0.4S29 SL (16:01)
[2024-03-17] MEDS ORDERED: IBU600T PO (16:01)
[2024-03-17] MEDS ORDERED: HYDR-4072 PO (16:47)
[2024-03-17] MEDS ORDERED: CYCL-839 PO (16:47)
== END 2024-03-17 18:43 | disposition home or self-care (01) | DRG 207 ==
LOC: EDBD 06:35 → ER 06:35 → TELE 09:38 → DOU IN ICU 17:44
PROVIDERS: ADMIT Internal Medicine; ATTEND Student in an Organized Health Care Education/Training Program
PROC: 0W9D30Z Drainage of Pericardial Cavity with Drainage Device, Percutaneous Approach (ICD-10-PCS; principal; 2024-03-09)
DX: I31.39 Other pericardial effusion (noninflammatory) (principal); I31.4 Cardiac tamponade; D68.59 Other primary thrombophilia; R65.10 Systemic inflammatory response syndrome (SIRS) of non-infectious origin without acute organ dysfunction; I44.1 Atrioventricular block, second degree; I82.611 Acute embolism and thrombosis of superficial veins of right upper extremity; I48.0 Paroxysmal atrial fibrillation; I25.10 Atherosclerotic heart disease of native coronary artery without angina pectoris; F12.10 Cannabis abuse, uncomplicated; Z20.822 Contact with and (suspected) exposure to COVID-19; K59.00 Constipation, unspecified; G89.29 Other chronic pain; I25.2 Old myocardial infarction; Z95.0 Presence of cardiac pacemaker; Z79.01 Long term (current) use of anticoagulants; Z87.891 Personal history of nicotine dependence
CPT/HCPCS: 33016; 36415; 71045; 71250; 71260; 72128; 80048; 80053; 80061; 80202; 80307; 81001; 82306; 82570; 82607; 83516; 83605; 83615; 83735; 83880; 83986; 84100; 84443; 84484; 84560; 85025; 85610; 85652; 85730; 86141; 86225; 86235; 87040; 87081; 87205; 87426; 89051; 93005; 93306; 93971; 96361; 96374; 96375; 96376; 97163; 99152; 99291; G0378; J2185; J2250; J2405; J2470; J2543; J3480; J3490

== ENCOUNTER → 2024-07-12 | Outpatient (CLI) | payer MEDICAID ==
[~2024-07-12] MED LIST changes: -APIX5TAB PO; -CLOP75TA70 PO; +COLC1CAP PO; +CYCL-839 PO; +FAMO-12 PO; +HYDR-4072 PO; +IBU600T PO; -NAPR-746 PO; +NITR0.4S29 SL
[2024-07-12 13:39] LABS: Prostate Specific Antigen 0.4 ng/mL (0.0-4.0)
[2024-07-12 13:43] LABS: Albumin 4.5 g/dL (3.2-4.8); Alkaline Phosphatase 85 U/L (46-116); Anion Gap 8 (5-15); BUN/Creatinine Ratio 9.3 (10.0-20.0); Blood Urea Nitrogen 10 mg/dL (9-23); Calcium 9.7 mg/dL (8.7-10.4); Carbon Dioxide 24 mmol/L (20-31); Chloride 105 mmol/L (98-107); Glucose 106 mg/dL (74-106); Potassium 3.6 mmol/L (3.5-5.1); Sodium 137 mmol/L (136-145)
[2024-07-12 13:44] LABS: Alanine Aminotransferase 48 U/L (7-40); Aspartate Aminotransferase 40 U/L (13-40); Bilirubin, Total 0.5 mg/dL (0.2-1.0); Free T4 (Free Thyroxine) 1.52 ng/dL (0.89-1.76); Total Protein 6.9 g/dL (5.7-8.2)
== END | disposition home or self-care (01) ==
LOC: LAB 12:47
PROVIDERS: ATTEND Internal Medicine
DX: E03.9 Hypothyroidism, unspecified (principal)
CPT/HCPCS: 36415; 80053; 84153; 84439; 84443

== ENCOUNTER 2024-07-14 21:28 | Inpatient (IN) | payer MEDICAID ==
[~2024-07-14] VITALS: Ht 180.3 cm; Wt 72.0 kg
--- NOTE | 2024-07-14 22:15 | ED.PDOC ---
HPI (NEURO) HPI Comments HPI: Ashish Historian. 59y M who presents to the ED via EMS for chief complaint of weakness. Pt had the following ED course: - EMS states pt has been having generalized weakness for the past 30 minutes prior to ED arrival. pt family called EMS after pt had multiple falls at home, with no noted head injury or any associated loss of consciosuness - EMS arrived on scene and checked vitals with noted accu check of 73 and pt was given oral glucose and brought to the ED - pt states in the ED he has been fasting since 1 days prior - pt family was called and on phone states pt took 3 ASA today prior to ED arrival as pt has history of AFIB and has not taken his eliquis in 2 weeks due do side efffect from medication - pt in the ED, is alert and oriented x 4 and able to answer all questions. Past medical history: hypothyroidism, AFIB, pericarditis, blood around the heart, Av block second-degree, marijuana abuse, cardiac tamponade, Barry syndrome, SD, chronic pain, pericardial effusion, primary thrombophilia, proximal atrial fibrillation, Past surgical history: pacemaker Social history: endorses tobacco use, denies ETOH use, endorses drug use(marijuana) Medications: denies Allergies: nkda Denies any head or neck injury. Denies any loss of consciousness. REVIEW OF SYSTEMS: CONSTITUTIONAL: Denies acute: fever, diaphoresis, chills, HEAD: Denies acute: headache, photophobia Eyes: Denies acute: Double vision, vision loss, eye pain, eye discharge. EARS: Denies acute: tinnitus, hearing loss, ear discharge, ear pain, THROAT: Denies acute: sore throat, swelling, difficulty swallowing , pain with swallowing, change in voice. NECK: Denies acute: neck pain, neck swelling, stiff neck. HEART: Denies acute : chest pain, palpitations, LUNGS: Denies acute: SOB, wheezing, cough, hemoptysis ABDOMEN: Denies acute: abdominal pain, Nausea, Vomiting, diarrhea, melena , hematemesis, hematochezia SKIN: Denies acute: rash, redness, lesions, itchiness. EXTREMITIES: Denies acute: calf pain, numbness, tingling, weakness, denies pain in extremity. Denies acute: Low back pain. Neuro: Denies acute: focal neurological deficit, motor or sensory focal neurological deficit, tremors, seizure like activity, confusion, dizziness, change in mental status, loss of bowel or bladder function, cauda equina like symptoms. : Denies acute: dysuria, hematuria, flank pain, increase in urinary frequency. PSYCH: Denies acute: hallucination, suicidal ideation, homicidal ideation. PHYSICAL EXAM: General: no acute distress, awake and alert. Head: normocephalic, atraumatic. Neck: supple, trachea is midline, no swelling. Throat: Normal phonation. Eyes:, no erythema, no purulent discharge, no proptosis, no icterus. Heart: regular rate, regular rhythm, no significant murmur appreciated. Lungs: no apparent respiratory distress, Able to speak in full sentences. No wheezing, no rhonchi, no crackles. No stridors Clear to auscultation bilaterally. Abdomen: non tender to palpation, non distended, soft, no guarding, no rebound, + bowel sounds. Neuro: Awake, Alert, oriented to name, self, situation, follows commands GCS=15. Speech is normal. Skin: no petechia, no purpura, no cyanosis, non-pale, not jaundice. Lower extremities: --no - Pitting edema no deformity, no focal swelling, no calf TTP. Makes eye contact. moves all four extremities. Face: no apparent facial droop. PERRLA, EOM-I CN 2-12 are grossly intact, No nystagmus. No nuchal rigidity, Kernig's sign, Brudzinski's sign, no meningeal signs. ED COURSE: Chief Complaint: General Weakness Time Seen by MD: 22:13 Primary Care Provider: UNKNOWN Reviewed Notes: Nurses Notes, Hop Farmer Notes Information Source: Patient, Emergency Med Personnel Mode of Arrival: EMS Brought in by: EMS Past Medical History PAST MEDICAL HISTORY: AFIB Surgical History: Pacemaker Family History Family History: Reviewed,noncontributory to illness, Unknown Social History Smoker: Quit Greater Than 1 Year, Cigarettes Alcohol: Sober Drugs: Marijuana Lives In: Home Was a procedure done? Was a procedure done?: No Differential Diagnosis (SZ) Seizure: N/A General Weakness: Other (Includes but not limited to thyroid disease, encephalopathy, electrolyte abnormality, sepsis, infection, intracranial pathology, drug adverse effects, arrhythmia, kidney insufficiency, ACS, CVA, malignancy, anemia) X-Ray, Labs, Meds, VS Vital Signs Date Time Temp Pulse Resp B/P (MAP) Pulse Ox O2 Delivery O2 Flow Rate FiO2 07/14/24 21:48 62 07/14/24 21:28 97.8 64 16 134/86 (102) 98 Lab Test 07/15/24 00:35 07/14/24 22:49 07/14/24 21:45 Range/Units Troponin I High Sensitivity 3 L 3 L 3 L </=54 ng/L White Blood Count 7.4 4.4-10.8 10^3/uL Red Blood Count 4.59 4.5-5.90 10^6/uL Hemoglobin 14.3 13.5-17.5 g/dL Hematocrit 42.6 41.0-53.0 % Mean Corpuscular Volume 92.8 80.0-100.0 fL Mean Corpuscular Hemoglobin 31.1 28.0-32.0 pg Mean Corpuscular Hemoglobin Concent 33.5 32.0-36.0 g/dL Red Cell Distribution Width 16.0 H 11.8-14.3 % Platelet Count 186 140-450 10^3/uL Mean Platelet Volume 9.6 6.9-10.8 fL Neutrophils (%) (Auto) 54.8 37.0-80.0 % Lymphocytes (%) (Auto) 36.8 10.0-50.0 % Monocytes (%) (Auto) 5.8 0.0-12.0 % Eosinophils (%) (Auto) 1.8 0.0-7.0 % Basophils (%) (Auto) 0.8 0.0-2.0 % Neutrophils # (Auto) 4.0 1.6-8.6 10 ^3/uL Lymphocytes # (Auto) 2.7 0.4-5.4 10 ^3/uL Monocytes # (Auto) 0.4 0-1.3 10 ^3/uL Eosinophils # (Auto) 0.1 0-0.8 10 ^3/uL Basophils # (Auto) 0.1 0-0.2 10 ^3/uL Nucleated Red Blood Cells 0.1 % Prothrombin Time 11.0 9.3-11.8 sec Prothrombin Time INR 1.04 0.9-1.15 Activated Partial Thromboplast Time 27.2 24.5-34.5 SEC D-Dimer, Quantitative 0.79 H 0.0-0.49 mg/L FEU Sodium Level 138 136-145 mmol/L Potassium Level 4.2 3.5-5.1 mmol/L Chloride Level 106 98-107 mmol/L Carbon Dioxide Level 28 20-31 mmol/L Anion Gap 4 L 5-15 Blood Urea Nitrogen 10 9-23 mg/dL Creatinine 0.97 0.700-1.30 mg/dL Glomerular Filtration Rate Calc 89 >90 mL/min BUN/Creatinine Ratio 10.3 10.0-20.0 Serum Glucose 101 74-106 mg/dL Lactic Acid Level 0.6 0.4-2.0 mmol/L Calcium Level 9.7 8.7-10.4 mg/dL Magnesium Level 2.2 1.6-2.6 mg/dL Total Bilirubin 0.6 0.2-1.0 mg/dL Aspartate Amino Transferase (AST) 26 13-40 U/L Alanine Aminotransferase (ALT) 33 7-40 U/L Alkaline Phosphatase 75 46-116 U/L Total Protein 6.5 5.7-8.2 g/dL Albumin 4.3 3.2-4.8 g/dL Time of 1ST Reevaluation: 02:42 Reevaluation 1ST: Improved Patient Education/Counseling: Diagnosis, Treatment Family Education/Counseling: No Family Present Comments Patient presented with the above HPI.---generalized weakness---workup was initiated. patient was found with the above mentioned diagnosis. the following medications were ordered: please refer to order lists of meds and tests obtained by myself Dr. Browning. Patient ED course and VS have been stabilized. Patient has been reassessed in the ED and remained in a stable condition. Pertinent incidental findings were discussed with the patient and/or family. Patient/family voices understanding and is agreeable with plan. Patient has been observed in the ED adequate length of time to insure improvement/stability. Escalation of care considered: Consideration of escalation to observation or admission Patient was ADMITTED to the medicine team for further evaluation and treatment of their presentation. All the reports of any imaging studies that were ordered by myself were reviewed by myself. Departure 1 Departure Time of Disposition: 23:39 Impression: Primary Impression: Generalized weakness Disposition: 09 ADMITTED INPATIENT Admit to: Tele Condition: Guarded Discharged With: Self Critical Care Note Critical Care Time?: No I personally scribed for MARK BROWNING DO ([email or web address]) on 07/14/24 at 22:15. Electronically submitted by Eros Garcia ([facility]). MARK BROWNING DO Jul 14, 2024 22:15
[2024-07-14 22:21] LABS: Basophils # (auto) 0.1 10 ^3/uL (0-0.2); Basophils % (auto) 0.8 % (0.0-2.0); Eosinophils # (auto) 0.1 10 ^3/uL (0-0.8); Eosinophils % (auto) 1.8 % (0.0-7.0); Hematocrit 42.6 % (41.0-53.0); Hemoglobin 14.3 g/dL (13.5-17.5); Lymphocytes # (auto) 2.7 10 ^3/uL (0.4-5.4); Lymphocytes % (auto) 36.8 % (10.0-50.0); Mean Corpuscular Hemoglobin 31.1 pg (28.0-32.0); Mean Corpuscular Hgb Conc. 33.5 g/dL (32.0-36.0); Mean Corpuscular Volume 92.8 fL (80.0-100.0); Monocytes # (auto) 0.4 10 ^3/uL (0-1.3); Monocytes % (auto) 5.8 % (0.0-12.0); Neutrophils % (auto) 54.8 % (37.0-80.0); Nucleated Red Blood Cells % 0.1 %; Platelet Count (auto) 186 10^3/uL (140-450); Red Blood Cells 4.59 10^6/uL (4.5-5.90); White Blood Cell 7.4 10^3/uL (4.4-10.8)
[2024-07-14 22:36] LABS: INR 1.04 (0.9-1.15); Partial Thromboplastin Time 27.2 SEC (24.5-34.5)
[2024-07-14 22:45] LABS: Alanine Aminotransferase 33 U/L (7-40); Albumin 4.3 g/dL (3.2-4.8); Alkaline Phosphatase 75 U/L (46-116); Anion Gap 4 (5-15); Aspartate Aminotransferase 26 U/L (13-40); BUN/Creatinine Ratio 10.3 (10.0-20.0); Blood Urea Nitrogen 10 mg/dL (9-23); Calcium 9.7 mg/dL (8.7-10.4); Carbon Dioxide 28 mmol/L (20-31); Chloride 106 mmol/L (98-107); Glucose 101 mg/dL (74-106); Magnesium 2.2 mg/dL (1.6-2.6); Potassium 4.2 mmol/L (3.5-5.1); Sodium 138 mmol/L (136-145)
[2024-07-14 22:46] LABS: Bilirubin, Total 0.6 mg/dL (0.2-1.0); Total Protein 6.5 g/dL (5.7-8.2)
--- NOTE | 2024-07-14 23:50 | DVH ---
CHEST RADIOGRAPH Indication: weak Technique: Single frontal view of the chest was obtained COMPARISON: XY CHEST XRAY 1 VIEW on DOS: 03/17/24, XY CHEST XRAY 1 VIEW on DOS: 03/16/24, XY CHEST XR AY 1 VIEW on DOS: 03/15/24, XY CHEST XRAY 1 VIEW on DOS: 03/14/24, XY CHEST XRAY 1 VIEW on DOS: 03/13 FINDINGS: Lines and Tubes: Dual-lead pacemaker noted overlying left chest wall. Lungs: Clear Pleura: No effusion. No pneumothorax. Cardiomediastinal contours: Unremarkable Bones: Unremarkable IMPRESSION: No abnormality demonstrated.
[2024-07-15] MEDS ORDERED: NITROGLYCERIN 0.4 MG SL TAB SL PRN (01:15)
[2024-07-15] MEDS ORDERED: MORPHINE SULFATE INJ 2 MG/ml SYRG IV PRN (01:15)
--- NOTE | 2024-07-15 01:30 | DVH ---
EXAM: CT HEAD WITHOUT CONTRAST INDICATION: rule out stroke TECHNIQUE: CT of the head without intravenous contrast. Radiation Dose : 1. Head: CT Dose: CTDI volume is 58 mGy. Dose-length product is 1142 mGy*cm The dose indicators for CT are the volume Computed Tomography (CT) Dose Index (CTDIvol) and the Dose Length Product (DLP), and are measured in units of mGy and mGy-cm, respectively. These indicators are not patient dose, but values generated from the CT scanner acquisition factors. The report includes radiation exposure data for exposures received during this examination. COMPARISON: CT HEAD WITHOUT CONTRAST on DOS: 02/25/24 FINDINGS: There is no evidence of acute intracranial hemorrhage, extra-axial collection, mass effect, midline s hift, herniation or hydrocephalus. The ventricles, sulci and cisterns are age appropriate. The agarwal-white differentiation is intact. Patchy periventricular and subcortical white matter hypoattenuation is nonspecific but may be related to small vessel ischemic disease. The visualized paranasal sinuses and mastoid air cells are clear. The surrounding soft tissues and osseous structures are unremarkable. IMPRESSION: 1. No acute intracranial abnormality. Radiation optimization: All CT scans at this facility use at least one of these dose optimization pelon hniques: automated exposure control mA and/or kV adjustment per patient size (includes targeted exam s where dose is matched to clinical indication) or iterative reconstruction.
[2024-07-15 03:02] VITALS: BP 115/72; PULSE 62; RESP 62; TEMP 97.7; O2SAT 98
[2024-07-15] MEDS: IOHEXOL 350 MG/ML 100ML IJ ONE (03:18)
--- NOTE | 2024-07-15 03:58 | DVH ---
CTA Chest with intravenous contrast INDICATION: weak COMPARISON: None TECHNIQUE: Multidetector spiral CTA of the chest was performed of the chest with intravenous contrast . PULMONARY ANGIOGRAPHY PROTOCOL was utilized using a bolus-tracking technique centered on the main p ulmonary artery. Axial, coronal and sagittal multiplanar and MIP reformats were performed. Radiation Dose : 1. Chest: CTDI volume is 29.0 mGy. Dose-length product is 903.70 mGy*cm The dose indicators for CT are the volume Computed Tomography (CT) Dose Index (CTDIvol) and the Dose Length Product (DLP), and are measured in units of mGy and mGy-cm, respectively. These indicators are not patient dose, but values generated from the CT scanner acquisition factors. The report includes radiation exposure data for exposures received during this examination. Findings: Pulmonary artery: No pulmonary embolism Lower neck: Normal thyroid. Lungs: Comer dependent ground-glass interstitial change is noted in the lower lobes. Minimal subseg mental atelectasis is noted in the posterior costophrenic sulci. Heart/Vascular Structures: Normal heart size. No pericardial effusion. Coronary artery calcification is present. A permanent pacemaker is implanted in the subcutaneous tissues of the anterior left upper chest with atrial and ventricular wire leads. Lymph Nodes: No adenopathy Pleura: No pleural effusion or significant pneumothorax. Musculoskeletal: Degenerative changes are noted in the bones. Soft tissues: Normal. Upper abdomen: 18 x 17 mm cyst in the posterior left renal midportion is incidentally noted. No furth er imaging follow-up is necessary. IMPRESSION: 1. No pulmonary embolism.
[2024-07-15] MEDS ORDERED: HYDROcodone-ACET 10/325MG TAB PO PRN (05:00)
--- NOTE | 2024-07-15 05:05 | DVHHPRES ---
History of Present Illness Resident Creating Document: CLIFFORD ODEN RESIDENT Reason for Visit: near syncope History of Present Illness The patient has a past medical history of paroxysmal atrial fibrillation, second-degree AV block Mobitz II status post-pacemaker placement, coronary artery disease (LAD and RCA, nonstentable), history of cocaine abuse, and recent pericardial hemopericardium. He presented to the ED after experiencing a near- syncopal episode, describing a sensation of "lighting out" and falling due to sudden leg weakness at 8 pm. He denies complete loss of consciousness. On arrival, his blood glucose was 73, for which he was given glucose. He also reported that he was not taking Eliquis as his primary care physician had advised aspirin instead due to his atrial fibrillation. PMHx: paroxysmal atrial fibrillation, second-degree AV block Mobitz II status post-pacemaker placement, coronary artery disease (LAD and RCA mild), history of cocaine abuse, and recent pericardial hemopericardium. Home meds: Amiodarone 200 mg b.i.d. aspirin 81 mg atorvastatin 20 mg cyclobenzaprine at 10 mg [place] 10 metoprolol succinate to 25 trazodone 50 mg Social history: Lives with in [place]. Ex-smoker (30 pack-year history of smoking), occasionally smokes marijuana especially when he has pain. History of cocaine abuse. Denies current tobacco, alcohol and other drug abuse Workup: EKG: Ventricular pacing, no new ischemic changes. Troponins: Negative. CBC/CMP: Normal. CT Angiography (Chest): No acute findings, incidental left renal cyst. Head CT: Small patchy ventricular and subcortical white matter hyperintensities, likely small vessel ischemic disease. Review of Systems Constitutional: Yes: Weakness; No: Fever, Chills, Sweats, Malaise, Other Eyes: No: Pain, Vision change, Conjunctivae inflammation, Eyelid inflammation, Other, Redness ENT: No: Ear pain, Ear discharge, Nose pain, Nose discharge, Nose congestion, Mouth pain, Mouth swelling, Throat pain, Throat swelling, Other Respiratory: No: Cough, Dry, Shortness of breath, SOB with excertion, Wheezing, Hemoptysis, Pleuritic Pain, Sputum, Wheezing, Other Cardiovascular: No: Chest Pain, Palpitations, Orthopnea, Paroxysmal Noc. Dyspnea, Edema, Lt Headedness, Other Gastrointestinal: No: Nausea, Vomiting, Abdominal Pain, Diarrhea, Constipation, Melena, Hematochezia, Other Genitourinary: No Dysuria, No Frequency, No Incontinence, No Hematuria, No Retention, No Other Musculoskeletal: No: other, neck pain, shoulder pain, arm pain, back pain, hand pain, leg pain, foot pain Skin: No: Rash, Lesions, Jaundice, Bruising, Other Neurological: No: Weakness, Numbness, Incoordination, Change in speech, Confusion, Seizures, Other Allergies: Coded Allergies: NO KNOWN ALLERGIES (Unverified , 05/04/15) Medications Current Medications Medications Dose Ordered Sig/Danae Route Start Time Stop Time Status Last Admin Dose Admin Nitroglycerin 0.4 mg Q5MINP PRN SL 07/15/24 01:15 Morphine Sulfate 2 mg Q30M PRN IV 07/15/24 01:15 Exam Vital Signs Vital Signs Date Time Temp Pulse Resp B/P (MAP) Pulse Ox O2 Delivery O2 Flow Rate FiO2 07/15/24 03:02 97.7 62 18 115/72 (86) 98 97.7 07/15/24 03:02 Room Air* 0 21 General Appearance: Alert, Oriented X3, Cooperative HEENT: Atraumatic, PERRLA, EOMI Respiratory: Clear to auscultation, Normal air movement Cardiovascular: Regular rate, Normal S1 Abdominal: Normal bowel sounds, Soft Extremities: No clubbing, No cyanosis Skin: No rashes, No breakdown Neuro: Normal gait, Normal speech Psych/Mental Status: Mental status NL, Mood NL Labs/Xrays Labs Test 07/15/24 00:35 07/14/24 21:45 Range/Units Troponin I High Sensitivity 3 L </=54 ng/L White Blood Count 7.4 4.4-10.8 10^3/uL Red Blood Count 4.59 4.5-5.90 10^6/uL Hemoglobin 14.3 13.5-17.5 g/dL Hematocrit 42.6 41.0-53.0 % Mean Corpuscular Volume 92.8 80.0-100.0 fL Mean Corpuscular Hemoglobin 31.1 28.0-32.0 pg Mean Corpuscular Hemoglobin Concent 33.5 32.0-36.0 g/dL Red Cell Distribution Width 16.0 H 11.8-14.3 % Platelet Count 186 140-450 10^3/uL Mean Platelet Volume 9.6 6.9-10.8 fL Neutrophils (%) (Auto) 54.8 37.0-80.0 % Lymphocytes (%) (Auto) 36.8 10.0-50.0 % Monocytes (%) (Auto) 5.8 0.0-12.0 % Eosinophils (%) (Auto) 1.8 0.0-7.0 % Basophils (%) (Auto) 0.8 0.0-2.0 % Neutrophils # (Auto) 4.0 1.6-8.6 10 ^3/uL Lymphocytes # (Auto) 2.7 0.4-5.4 10 ^3/uL Monocytes # (Auto) 0.4 0-1.3 10 ^3/uL Eosinophils # (Auto) 0.1 0-0.8 10 ^3/uL Basophils # (Auto) 0.1 0-0.2 10 ^3/uL Nucleated Red Blood Cells 0.1 % Prothrombin Time 11.0 9.3-11.8 sec Prothrombin Time INR 1.04 0.9-1.15 Activated Partial Thromboplast Time 27.2 24.5-34.5 SEC D-Dimer, Quantitative 0.79 H 0.0-0.49 mg/L FEU Sodium Level 138 136-145 mmol/L Potassium Level 4.2 3.5-5.1 mmol/L Chloride Level 106 98-107 mmol/L Carbon Dioxide Level 28 20-31 mmol/L Anion Gap 4 L 5-15 Blood Urea Nitrogen 10 9-23 mg/dL Creatinine 0.97 0.700-1.30 mg/dL Glomerular Filtration Rate Calc 89 >90 mL/min BUN/Creatinine Ratio 10.3 10.0-20.0 Serum Glucose 101 74-106 mg/dL Lactic Acid Level 0.6 0.4-2.0 mmol/L Calcium Level 9.7 8.7-10.4 mg/dL Magnesium Level 2.2 1.6-2.6 mg/dL Total Bilirubin 0.6 0.2-1.0 mg/dL Aspartate Amino Transferase (AST) 26 13-40 U/L Alanine Aminotransferase (ALT) 33 7-40 U/L Alkaline Phosphatase 75 46-116 U/L Total Protein 6.5 5.7-8.2 g/dL Albumin 4.3 3.2-4.8 g/dL Assessment/Plan Assessment/Plan 58-year-old male with a history of atrial fibrillation (not on anticoagulation), pacemaker for second-degree AV block, and prior pericardial hemopericardium presenting with near-syncope. #Near-syncope #Rule out arrhythmic vs orthostatic etiology. Continuous cardiac monitoring: admit telemetry Cardiology consult for pacemaker evaluation and syncope workup. ECHO ordered #Paroxysmal Atrial fibrillation: Not on Eliquis, per PCP recommendation due to recent hemopericardium Continue aspirin Hold on amiodarone and metoprolol due to near syncope #Coronary artery disease: No ischemic changes on EKG or troponins. Continue aspirin. #Small vessel ischemic disease: No acute neurological deficits. #Hypoglycemia (BG 73): Resolved after glucose administration. Monitor blood glucose levels. Case discussed with Dr Ernst Plan discussed with: Patient, Other (rn) My Orders Orders - CLIFFORD ODEN Procedure Category Date Status Time Admit ADMIT 07/15/24 Transmitted 01:03 Nitroglycerin PHA 07/15/24 In Process Sublingual (Ntrostat 01:15 Morphine Sulfate [facility] 07/15/24 In Process Injection 01:15 Oxygen By Nasal RT 07/15/24 Transmitted Cannula 01:03 Stat Ekg For Chest [facility] 07/15/24 In Process Pain 01:03 Notify Of Changes [facility] 07/15/24 In Process From Base 01:03 Wind Up Worker For [facility] 07/15/24 In Process 24 Hours 01:03 Emergency Dysrhythmia [facility] 07/15/24 In Process Protocol 01:03 Rhythm Strips Once [facility] 07/15/24 In Process Every Shift 01:03 Electrocardigram EKG 07/15/24 Logged 01:03 Cardiac DIET 07/15/24 Transmitted Diet-2gna,Lofat,Lochol Breakfast Head Without Contrast CT 07/15/24 Resulted 01:03 Assess Pacemaker [facility] 07/15/24 In Process Function 01:08 Covid19 Antigen [facility] 07/15/24 Logged Rapid Influenza A&B LAB 07/15/24 Logged 01:09 Date of Service: Jul 15, 2024 Billing Provider: SUSHILA ERNST MD Common Visit Codes: [id number] INP/OBS CARE (HIGH) CLIFFORD ODEN RESIDENT Jul 15, 2024 05:05 SUSHILA ERNST MD Jul 16, 2024 08:47
--- NOTE | 2024-07-15 08:38 | ECG ---
[facility] Test Date: 2024-07-14 Test Time: 21:48:39 Pat Name: SPIKE SCOTT Department: ER Room: [address] [place] [address] A Gender: M Cleaning Porter: : 1965 Requested By: MARK MARCUS Order Number: [id number] Reading MD: Theo Cummins Measurements Intervals [place] Rate: 62 P: 259 W[place]: 215 QRS: -66 QRSD: 176 T: 78 QT: 521 QTc: 530 Interpretive Statements Atrial-ventricular dual-paced rhythm No further analysis attempted due to paced rhythm Electronically Signed On 07-17-2024 17:43:35 PST by Theo Cummins Please click the below link to view image of tracing.
[2024-07-15] MEDS ORDERED: ASPirin 81 mg TAB PO SCH (10:00)
[2024-07-15] MEDS ORDERED: ATORVASTATIN 20 MG TAB PO SCH (22:00)
== END 2024-07-15 04:55 | disposition left against medical advice (07) | DRG 201 ==
LOC: EDBD 21:28 → ER 21:28 → OVERFLOW 07-15 01:03
PROVIDERS: ATTEND Emergency Medicine
DX: I49.8 Other specified cardiac arrhythmias (principal); E03.9 Hypothyroidism, unspecified; E16.2 Hypoglycemia, unspecified; I25.10 Atherosclerotic heart disease of native coronary artery without angina pectoris; Z53.29 Procedure and treatment not carried out because of patient's decision for other reasons; I48.0 Paroxysmal atrial fibrillation; G89.29 Other chronic pain; Z87.891 Personal history of nicotine dependence; Z79.899 Other long term (current) drug therapy
CPT/HCPCS: 36415; 70450; 71045; 71275; 80053; 83605; 83735; 84484; 85025; 85379; 85610; 85730; 93005; G0378

== ENCOUNTER 2024-11-09 08:33 | Outpatient (CLI) | payer MEDICAID ==
[2024-11-09 09:09] LABS: Basophils # (auto) 0.1 10 ^3/uL (0-0.2); Basophils % (auto) 1.2 % (0.0-2.0); Eosinophils # (auto) 0.1 10 ^3/uL (0-0.8); Eosinophils % (auto) 1.9 % (0.0-7.0); Hematocrit 46.8 % (41.0-53.0); Hemoglobin 16.2 g/dL (13.5-17.5); Lymphocytes # (auto) 1.9 10 ^3/uL (0.4-5.4); Mean Corpuscular Hemoglobin 33.1 pg (28.0-32.0); Mean Corpuscular Hgb Conc. 34.7 g/dL (32.0-36.0); Mean Corpuscular Volume 95.5 fL (80.0-100.0); Monocytes # (auto) 0.5 10 ^3/uL (0-1.3); Monocytes % (auto) 6.1 % (0.0-12.0); Neutrophils # (auto) 5.1 10 ^3/uL (1.6-8.6); Neutrophils % (auto) 65.8 % (37.0-80.0); Platelet Count (auto) 187 10^3/uL (140-450); Red Cell Distribution Width 13.6 % (11.8-14.3); White Blood Cell 7.8 10^3/uL (4.4-10.8)
[2024-11-09 09:39] LABS: Alanine Aminotransferase 19 U/L (7-40); Albumin 4.4 g/dL (3.2-4.8); Alkaline Phosphatase 91 U/L (46-116); Anion Gap 5 (5-15); Aspartate Aminotransferase 20 U/L (<34); BUN/Creatinine Ratio 9.6 (10.0-20.0); Bilirubin, Total 0.5 mg/dL (0.2-1.0); Blood Urea Nitrogen 9 mg/dL (9-23); Calcium 10.1 mg/dL (8.7-10.4); Carbon Dioxide 29 mmol/L (20-31); Chloride 105 mmol/L (98-107); Glucose 83 mg/dL (74-106); HDL Cholesterol 50 mg/dL (40-59); Potassium 4.6 mmol/L (3.5-5.1); Sodium 139 mmol/L (136-145); Total Protein 7.1 g/dL (5.7-8.2); Triglycerides 115 mg/dL (< 150)
[2024-11-09 09:40] LABS: Cholesterol 247 mg/dL (< 200); LDL Cholesterol 195 mg/dL (< 100)
[2024-11-10 10:45] LABS: Hepatitis B Core Total AB Negative (Negative)
[2024-11-10 11:16] LABS: Hepatitis A Total Antibody Negative (Negative); Hepatitis B Surface Antibody Negative (Negative); Hepatitis B Surface Antigen Negative (Negative); Hepatitis C Antibody Negative (Negative)
== END 2024-11-09 17:00 | disposition home or self-care (01) ==
LOC: LAB 08:33
PROVIDERS: ATTEND Licensed Practical Nurse
DX: E78.5 Hyperlipidemia, unspecified (principal); I48.0 Paroxysmal atrial fibrillation; E03.9 Hypothyroidism, unspecified; Z13.1 Encounter for screening for diabetes mellitus; E55.9 Vitamin D deficiency, unspecified; Z12.11 Encounter for screening for malignant neoplasm of colon
CPT/HCPCS: 36415; 80053; 80061; 82043; 82306; 83036; 84439; 84443; 85025; 86704; 86706; 86708; 86803; 87340